=== PATIENT | male | born 1945 | race Caucasian/White ===

== ENCOUNTER 2017-11-14 15:46 | Emergency (ER) | payer MEDICARE ==
[~2017-11-14] VITALS: Ht 172.7 cm; Wt 115.0 kg
[~2017-11-14 15:46] MED LIST: ALBU2.5V NPPB; ALLO300T PO; AMLO5TAB2 PO; AMOX1TAB64 PO; ASPI-496 PO; ASPI-650 PO; CETI10CA PO; CLIN150C14 PO; FAMO20TA7 PO; FLUT9.9S NAS; FURO-92 PO; FURO-93 PO; FURO80TA3 PO; INSU100I18 SQ-INSULIN; LEVO88TA4 PO; LISI-170 PO; LISINOPRIL; MAGN1POW15 PO; METF500T4 PO; METF750T2 PO; METO50TA82 PO; METOPROLOL; POTA10TA6 PO; PRED50TA PO; PRED5TAB PO; SYNTHROID; [UNRECOGNIZED DRUG - OTHER]
[2017-11-14] MEDS ORDERED: DILT60CA PO (16:26)
[2017-11-14] MEDS ORDERED: PRED5TAB25 PO (16:26)
[2017-11-14] MEDS ORDERED: LIDOCAINE-MPF 1%, 5ML ONE (16:28)
[2017-11-14] MEDS ORDERED: LIDOCAINE-MPF 1%, 5ML INFIL ONE (16:30)
[2017-11-14 16:52] LABS: BASOPHILS # (AUTO) 0.03 x10^3/uL (0-0.1); BASOPHILS % (AUTO) 0 % (0-1); EOSINOPHILS # (AUTO) 0.07 x10^3/uL (0-0.4); EOSINOPHILS % (AUTO) 1 % (1-7); LYMPHOCYTES # (AUTO) 0.69 x10^3/uL (1-3.4); LYMPHOCYTES % (AUTO) 6 % (22-44); MD NO; MEAN CORPUSCULAR HEMOGLOBIN 26.9 pg (27.5-34.5); MEAN CORPUSCULAR HGB CONC 32.1 g/dL (33.2-36.2); MEAN CORPUSCULAR VOLUME 83.9 fL (81-97); MEAN PLATELET VOLUME 10.8 fL (7.4-10.4); MONOCYTES # (AUTO) 0.67 x10^3/uL (0.2-0.8); MONOCYTES % (AUTO) 5 % (2-9); NEUTROPHILS # (AUTO) 10.86 x10^3/uL (1.8-6.8); NEUTROPHILS % (AUTO) 88 % (42-75); PLATELET COUNT 215 x10^3/uL (130-400); RED BLOOD COUNT 4.76 x10^6/uL (4.38-5.82); RED CELL DISTRIBUTION WIDTH 15.2 % (9.4-14.8)
[2017-11-14 17:02] LABS: ALBUMIN 3.6 g/dL (3.4-5.0); ANION GAP 10 mmol/L (5-15); CHLORIDE 99 mmol/L (98-107); CREATININE 1.79 mg/dL (0.7-1.3)
[2017-11-14] MEDS ORDERED: CEFTRIAXONE 1,000 MG ONE (17:37)
[2017-11-14] MEDS ORDERED: LIDOCAINE-MPF 1%, 2ML ONE (17:37)
[2017-11-14 17:54] VITALS: BP 146/91
[2017-11-14] MEDS ORDERED: CEFTRIAXONE 1,000 MG IM ONE (18:00)
== END 2017-11-14 18:08 | disposition home or self-care (01) ==
LOC: ED 16:47
DX: L02.212 Cutaneous abscess of back [any part, except buttock and flank] (principal); E03.9 Hypothyroidism, unspecified; E11.9 Type 2 diabetes mellitus without complications; J44.9 Chronic obstructive pulmonary disease, unspecified; Z87.891 Personal history of nicotine dependence; Z98.890 Other specified postprocedural states
CPT/HCPCS: 10060; 36415; 71046; 80048; 82040; 85025; 96372; 99285; J0696

== ENCOUNTER 2017-11-20 12:46 | Emergency (ER) | payer MEDICARE ==
[~2017-11-20] VITALS: Ht 172.7 cm; Wt 115.0 kg
[~2017-11-20 12:46] MED LIST changes: +DILT60CA PO; +PRED5TAB25 PO
[2017-11-20 12:47] VITALS: BP 188/68
== END 2017-11-20 13:32 | disposition home or self-care (01) ==
LOC: ED 13:26
DX: Z48.01 Encounter for change or removal of surgical wound dressing (principal); J44.9 Chronic obstructive pulmonary disease, unspecified; I11.0 Hypertensive heart disease with heart failure; I50.9 Heart failure, unspecified; E03.9 Hypothyroidism, unspecified
CPT/HCPCS: 99282

== ENCOUNTER 2017-11-23 14:55 | Emergency (ER) | payer MEDICARE ==
[~2017-11-23] VITALS: Ht 172.7 cm; Wt 113.6 kg
[2017-11-23 14:58] VITALS: BP 187/73
== END 2017-11-23 16:27 | disposition home or self-care (01) ==
LOC: ED 16:21
DX: L02.212 Cutaneous abscess of back [any part, except buttock and flank] (principal); E03.9 Hypothyroidism, unspecified; E11.9 Type 2 diabetes mellitus without complications; J44.9 Chronic obstructive pulmonary disease, unspecified; Z87.891 Personal history of nicotine dependence
CPT/HCPCS: 99283

== ENCOUNTER 2017-11-28 14:19 | Emergency (ER) | payer MEDICARE ==
[~2017-11-28] VITALS: Ht 172.7 cm; Wt 113.6 kg
[2017-11-28 14:21] VITALS: BP 177/69
== END 2017-11-28 15:45 | disposition home or self-care (01) ==
LOC: ED 14:39
DX: L02.212 Cutaneous abscess of back [any part, except buttock and flank] (principal); E03.9 Hypothyroidism, unspecified; E11.9 Type 2 diabetes mellitus without complications; J44.9 Chronic obstructive pulmonary disease, unspecified; D64.9 Anemia, unspecified; I11.0 Hypertensive heart disease with heart failure; I50.9 Heart failure, unspecified
CPT/HCPCS: 99281

== ENCOUNTER 2018-02-17 12:10 | Inpatient (IN) | payer MEDICARE ==
[~2018-02-17] VITALS: Ht 172.7 cm; Wt 119.0 kg
[~2018-02-17 12:10] MED LIST changes: -AMLO5TAB2 PO; +AMLO5TAB7 PO; +METF500T17 PO; -METF500T4 PO
[2018-02-17] MEDS ORDERED: ASPIRIN 81 MG TABLET CHEW ONE (13:27)
[2018-02-17] MEDS ORDERED: ASPIRIN 81 MG TABLET CHEW PO ONE (13:30)
[2018-02-17 13:42] LABS: BASOPHILS # (AUTO) 0.02 x10^3/uL (0-0.1); BASOPHILS % (AUTO) 0 % (0-1); EOSINOPHILS % (AUTO) 1 % (1-7); LYMPHOCYTES # (AUTO) 0.93 x10^3/uL (1-3.4); LYMPHOCYTES % (AUTO) 10 % (22-44); MD NO; MEAN CORPUSCULAR HEMOGLOBIN 26.6 pg (27.5-34.5); MEAN CORPUSCULAR HGB CONC 32.2 g/dL (33.2-36.2); MEAN CORPUSCULAR VOLUME 82.6 fL (81-97); MEAN PLATELET VOLUME 9.9 fL (7.4-10.4); MONOCYTES # (AUTO) 0.58 x10^3/uL (0.2-0.8); MONOCYTES % (AUTO) 6 % (2-9); NEUTROPHILS # (AUTO) 8.09 x10^3/uL (1.8-6.8); NEUTROPHILS % (AUTO) 83 % (42-75); PLATELET COUNT 203 x10^3/uL (130-400); RED BLOOD COUNT 4.81 x10^6/uL (4.38-5.82); RED CELL DISTRIBUTION WIDTH 15.5 % (9.4-14.8)
[2018-02-17 13:53] LABS: ALANINE AMINOTRANSFERASE 19 U/L (12-78); ALBUMIN 3.8 g/dL (3.4-5.0); ANION GAP 8 mmol/L (5-15); CALCIUM 8.5 mg/dL (8.5-10.1); CHLORIDE 97 mmol/L (98-107); CREATININE 1.85 mg/dL (0.7-1.3)
[2018-02-17 13:57] LABS: ALKALINE PHOSPHATASE 48 U/L (45-117); BILIRUBIN,TOTAL 0.4 mg/dL (0.2-1.0); TOTAL PROTEIN 6.9 g/dL (6.4-8.2)
[2018-02-17] MEDS ORDERED: FUROSEMIDE 40 MG/4 ML IV ONE (14:00)
[2018-02-17] MEDS ORDERED: FUROSEMIDE 40 MG/4 ML ONE (14:05)
[2018-02-17] MEDS ORDERED: ACETAMINOPHEN 325 MG TABLET PO PRN (15:30)
[2018-02-17] MEDS ORDERED: POLYETHYLENE GLYCOL 17 GM PACKET PO PRN (15:30)
[2018-02-17] MEDS ORDERED: BISACODYL 10 MG SUPP PR PRN (15:30)
[2018-02-17] MEDS ORDERED: HYDROcodone/APAP 5/325 TABLET PO PRN (15:30)
[2018-02-17] MEDS ORDERED: GLUCAGON 1 MG IM PRN (15:30)
[2018-02-17] MEDS ORDERED: DOCUSATE 100 MG CAPSULE PO PRN (15:30)
[2018-02-17] MEDS ORDERED: hydrALAzine 20 MG/ML, 1ML IVPush PRN (15:30)
[2018-02-17] MEDS ORDERED: DEXTROSE 4 GM TAB.CHEW PO PRN (15:30)
[2018-02-17] MEDS ORDERED: LABETALOL 5MG/ML, 20ML IVPush PRN (15:30)
[2018-02-17] MEDS ORDERED: ONDANSETRON ODT 4 MG PO PRN (15:30)
[2018-02-17] MEDS ORDERED: DEXTROSE 50%, 50ML SYRINGE IVPush PRN (15:30)
[2018-02-17] MEDS ORDERED: LIDODERM 5% PATCH TD PRN (15:30)
[2018-02-17 17:19] LABS: HEMOGLOBIN A1C 12.5 % (4.2-6.3)
[2018-02-17] MEDS: HEPARIN 5,000 UNITS/ML, 1ML SQ SCH (17:27)
[2018-02-17] MEDS: INSULIN LISPRO 100 UNITS/ML, PEN SQ-INSULIN SCH ×2 (17:54→21:48)
[2018-02-17 19:51] VITALS: BP 153/86
[2018-02-17] MEDS: SODIUM CHLORIDE FLUSH 10ML SYR IVF SCH (21:00)
[2018-02-17] MEDS ORDERED: FUROSEMIDE 40 MG TABLET PO SCH (21:00)
[2018-02-18 00:48] VITALS: BP 163/62
[2018-02-18] MEDS: HEPARIN 5,000 UNITS/ML, 1ML SQ SCH ×4 (01:04→23:20)
[2018-02-18] MEDS: CYCLOBENZAPRINE 10 MG TABLET PO PRN ×2 (01:05→23:20)
[2018-02-18 01:35] LABS: BASOPHILS # (AUTO) 0.03 x10^3/uL (0-0.1); BASOPHILS % (AUTO) 0 % (0-1); EOSINOPHILS # (AUTO) 0.17 x10^3/uL (0-0.4); EOSINOPHILS % (AUTO) 2 % (1-7); LYMPHOCYTES # (AUTO) 1.21 x10^3/uL (1-3.4); LYMPHOCYTES % (AUTO) 14 % (22-44); MD NO; MEAN CORPUSCULAR HEMOGLOBIN 26.3 pg (27.5-34.5); MEAN CORPUSCULAR HGB CONC 32.1 g/dL (33.2-36.2); MEAN CORPUSCULAR VOLUME 81.9 fL (81-97); MEAN PLATELET VOLUME 9.6 fL (7.4-10.4); MONOCYTES # (AUTO) 0.61 x10^3/uL (0.2-0.8); MONOCYTES % (AUTO) 7 % (2-9); NEUTROPHILS # (AUTO) 6.39 x10^3/uL (1.8-6.8); NEUTROPHILS % (AUTO) 76 % (42-75); PLATELET COUNT 198 x10^3/uL (130-400); RED BLOOD COUNT 4.62 x10^6/uL (4.38-5.82); RED CELL DISTRIBUTION WIDTH 15.9 % (9.4-14.8)
[2018-02-18 01:47] LABS: ALANINE AMINOTRANSFERASE 20 U/L (12-78); ALBUMIN 3.5 g/dL (3.4-5.0); ANION GAP 3 mmol/L (5-15); CALCIUM 8.5 mg/dL (8.5-10.1); CHLORIDE 97 mmol/L (98-107); CHOLESTEROL, TOTAL 250 mg/dL (140-239); CREATININE 1.85 mg/dL (0.7-1.3)
[2018-02-18 01:52] LABS: TROPONIN I 0.063 ng/mL (0.000-0.045)
[2018-02-18 01:57] LABS: ALKALINE PHOSPHATASE 42 U/L (45-117); BILIRUBIN,TOTAL 0.4 mg/dL (0.2-1.0); CHOL/HDL RATIO 5.8; HDL CHOL % 17 % (26-37); HDL CHOLESTEROL (DIRECT) 43 mg/dL (40-60); LDL CHOLESTEROL,CALCULATED 177 mg/dL (54-169); LDL/HDL RATIO 4.1 (0.5-3.0); TOTAL PROTEIN 6.2 g/dL (6.4-8.2); TRIGLYCERIDES 148 mg/dL (50-200); VLDL CHOLESTEROL 30 mg/dL (0-25)
[2018-02-18] MEDS: INSULIN LISPRO 100 UNITS/ML, PEN SQ-INSULIN SCH ×4 (07:00→20:36)
[2018-02-18 08:42] VITALS: BP 178/71
[2018-02-18] MEDS ORDERED: REGADENOSON 0.4 MG/5 ML SYRINGE ONE (08:44)
[2018-02-18] MEDS: LEVOTHYROXINE 150 MCG TABLET PO SCH (08:56)
[2018-02-18] MEDS: ASPIRIN 325 MG TABLET EC PO SCH (08:56)
[2018-02-18] MEDS: SODIUM CHLORIDE FLUSH 10ML SYR IVF SCH ×2 (08:56→20:36)
[2018-02-18] MEDS ORDERED: FUROSEMIDE 40 MG/4 ML IV SCH (09:00)
[2018-02-18] MEDS ORDERED: FUROSEMIDE 40 MG/4 ML ONE (10:50)
[2018-02-18] MEDS: DILTIAZEM 60 MG CAP.ER.12H PO SCH (10:52)
[2018-02-18 12:36] VITALS: BP 168/75
[2018-02-18] MEDS: ALBUTEROL SULFATE 2.5 MG/3 ML NPPB PRN (14:55)
[2018-02-18] MEDS: ISOSORBIDE DINITRATE 10 MG TABLET PO SCH ×2 (15:29→20:32)
[2018-02-18] MEDS: CARVEDILOL 6.25 MG TABLET PO SCH (17:38)
[2018-02-18 19:21] VITALS: BP 147/67
[2018-02-19 01:28] VITALS: BP 118/55
[2018-02-19 05:10] LABS: ANION GAP 7 mmol/L (5-15); CALCIUM 8.9 mg/dL (8.5-10.1); CHLORIDE 98 mmol/L (98-107)
[2018-02-19] MEDS: CARVEDILOL 6.25 MG TABLET PO SCH ×2 (05:12→16:32)
[2018-02-19] MEDS: ASPIRIN 325 MG TABLET EC PO SCH (05:13)
[2018-02-19 05:14] LABS: CREATININE 1.84 mg/dL (0.7-1.3)
[2018-02-19] MEDS: INSULIN LISPRO 100 UNITS/ML, PEN SQ-INSULIN SCH ×4 (07:00→20:27)
[2018-02-19 07:53] VITALS: BP 126/70
[2018-02-19] MEDS: DILTIAZEM 60 MG CAP.ER.12H PO SCH (08:08)
[2018-02-19] MEDS: FUROSEMIDE 40 MG TABLET PO SCH (08:09)
[2018-02-19] MEDS: ISOSORBIDE DINITRATE 10 MG TABLET PO SCH ×3 (08:09→20:27)
[2018-02-19] MEDS: LEVOTHYROXINE 150 MCG TABLET PO SCH (08:09)
[2018-02-19] MEDS: SODIUM CHLORIDE FLUSH 10ML SYR IVF SCH ×2 (08:09→20:27)
[2018-02-19] MEDS: HEPARIN 5,000 UNITS/ML, 1ML SQ SCH ×3 (08:10→23:30)
[2018-02-19 13:17] VITALS: BP 129/65
[2018-02-19 18:50] VITALS: BP 134/66
[2018-02-19] MEDS: CARVEDILOL 12.5 MG TABLET PO SCH (20:27)
[2018-02-19] MEDS: CYCLOBENZAPRINE 10 MG TABLET PO PRN (23:47)
[2018-02-20 01:10] VITALS: BP 135/69
[2018-02-20] MEDS: ASPIRIN 325 MG TABLET EC PO SCH (06:12)
[2018-02-20] MEDS: CARVEDILOL 12.5 MG TABLET PO SCH ×2 (06:12→18:10)
[2018-02-20] MEDS: INSULIN LISPRO 100 UNITS/ML, PEN SQ-INSULIN SCH ×4 (07:00→21:00)
[2018-02-20 07:07] VITALS: BP 126/52
[2018-02-20] MEDS: HEPARIN 5,000 UNITS/ML, 1ML SQ SCH ×3 (07:30→23:01)
[2018-02-20] MEDS: ISOSORBIDE DINITRATE 10 MG TABLET PO SCH ×3 (07:50→20:27)
[2018-02-20] MEDS: FUROSEMIDE 40 MG TABLET PO SCH (07:50)
[2018-02-20] MEDS: LEVOTHYROXINE 150 MCG TABLET PO SCH (07:50)
[2018-02-20] MEDS: SODIUM CHLORIDE FLUSH 10ML SYR IVF SCH ×2 (07:55→20:19)
[2018-02-20] MEDS: SODIUM CHLORIDE 0.9% 1,000 ML IV SCH ×2 (08:27→20:28)
[2018-02-20 09:09] LABS: ANION GAP 5 mmol/L (5-15); CALCIUM 8.5 mg/dL (8.5-10.1); CHLORIDE 98 mmol/L (98-107); CREATININE 1.89 mg/dL (0.7-1.3)
[2018-02-20] MEDS ORDERED: methylPREDNISolone SOD SUCC 125 MG/2 ML IVPush ONE (11:30)
[2018-02-20] MEDS ORDERED: DIPHENHYDRAMINE 50 MG/ML, 1ML IVPush ONE (11:30)
[2018-02-20] MEDS ORDERED: VERAPAMIL 2.5 MG/ML, 2ML ONE (12:33)
[2018-02-20] MEDS ORDERED: FENTANYL PF 100 MCG/2ML ONE (12:33)
[2018-02-20] MEDS ORDERED: MIDAZOLAM 1 MG/ML, 5ML ONE (12:33)
[2018-02-20] MEDS ORDERED: TICAGRELOR 90 MG TABLET ONE (12:33)
[2018-02-20] MEDS ORDERED: NITROGLYCERIN 5 MG/ML, 10ML ONE (12:33)
[2018-02-20] MEDS ORDERED: HEPARIN 1,000 UNITS/ML, 10ML ONE (12:34)
[2018-02-20] MEDS ORDERED: BIVALIRUDIN 250 MG ONE (12:34)
[2018-02-20 14:30] VITALS: BP 139/69
[2018-02-20 19:33] VITALS: BP 130/66
[2018-02-20] MEDS ORDERED: INSULIN LISPRO 100 UNITS/ML, PEN SQ-INSULIN ONE (23:00)
[2018-02-21 00:44] VITALS: BP 137/71
[2018-02-21] MEDS: INSULIN GLARGINE 100 UNITS/ML, PEN SQ-INSULIN SCH ×2 (02:15→21:04)
[2018-02-21] MEDS: ASPIRIN 325 MG TABLET EC PO SCH (05:03)
[2018-02-21] MEDS: CARVEDILOL 12.5 MG TABLET PO SCH ×2 (05:03→16:51)
[2018-02-21 05:06] LABS: ALBUMIN 3.7 g/dL (3.4-5.0); ANION GAP 9 mmol/L (5-15); CALCIUM 8.4 mg/dL (8.5-10.1); CHLORIDE 96 mmol/L (98-107); CREATININE 2.39 mg/dL (0.7-1.3)
[2018-02-21] MEDS: HEPARIN 5,000 UNITS/ML, 1ML SQ SCH ×3 (07:33→23:46)
[2018-02-21] MEDS: SODIUM CHLORIDE FLUSH 10ML SYR IVF SCH ×2 (07:33→21:05)
[2018-02-21] MEDS: ISOSORBIDE DINITRATE 10 MG TABLET PO SCH ×3 (07:34→21:05)
[2018-02-21] MEDS: FUROSEMIDE 40 MG TABLET PO SCH (07:34)
[2018-02-21] MEDS: LEVOTHYROXINE 150 MCG TABLET PO SCH (07:35)
[2018-02-21] MEDS: INSULIN LISPRO 100 UNITS/ML, PEN SQ-INSULIN SCH ×4 (07:43→21:05)
[2018-02-21 07:52] VITALS: BP 127/65
[2018-02-21] MEDS: SODIUM CHLORIDE 0.9% 1,000 ML IV SCH ×2 (08:51→19:40)
[2018-02-21 14:26] VITALS: BP 128/60
[2018-02-21 19:34] VITALS: BP 128/71
[2018-02-21] MEDS: CYCLOBENZAPRINE 10 MG TABLET PO PRN (23:46)
[2018-02-22 00:50] VITALS: BP 161/75
[2018-02-22] MEDS: SODIUM CHLORIDE 0.9% 1,000 ML IV SCH ×3 (01:33→20:49)
[2018-02-22 06:11] VITALS: BP 150/77
[2018-02-22] MEDS: CARVEDILOL 12.5 MG TABLET PO SCH ×2 (06:14→16:24)
[2018-02-22] MEDS: ASPIRIN 325 MG TABLET EC PO SCH (06:14)
[2018-02-22] MEDS: ALBUTEROL SULFATE 2.5 MG/3 ML NPPB PRN (06:51)
[2018-02-22 08:07] VITALS: BP 123/76
[2018-02-22 08:12] LABS: ANION GAP 6 mmol/L (5-15); CALCIUM 8.8 mg/dL (8.5-10.1); CHLORIDE 99 mmol/L (98-107); CREATININE 2.43 mg/dL (0.7-1.3)
[2018-02-22] MEDS: INSULIN LISPRO 100 UNITS/ML, PEN SQ-INSULIN SCH ×4 (08:40→20:48)
[2018-02-22] MEDS: SODIUM CHLORIDE FLUSH 10ML SYR IVF SCH ×2 (08:41→20:49)
[2018-02-22] MEDS: HEPARIN 5,000 UNITS/ML, 1ML SQ SCH ×3 (08:41→22:58)
[2018-02-22] MEDS: FUROSEMIDE 40 MG TABLET PO SCH (08:42)
[2018-02-22] MEDS: ISOSORBIDE DINITRATE 20 MG TABLET PO SCH ×3 (08:42→20:46)
[2018-02-22] MEDS: LEVOTHYROXINE 150 MCG TABLET PO SCH (08:43)
[2018-02-22 14:24] VITALS: BP 129/74
[2018-02-22 18:40] VITALS: BP 108/50
[2018-02-22 19:06] VITALS: BP 137/70
[2018-02-22] MEDS: INSULIN GLARGINE 100 UNITS/ML, PEN SQ-INSULIN SCH (20:47)
[2018-02-22] MEDS: CYCLOBENZAPRINE 10 MG TABLET PO PRN (22:59)
[2018-02-23 00:18] VITALS: BP 158/80
[2018-02-23] MEDS: CARVEDILOL 12.5 MG TABLET PO SCH ×2 (05:25→18:15)
[2018-02-23] MEDS: ASPIRIN 325 MG TABLET EC PO SCH (05:26)
[2018-02-23 06:09] LABS: ANION GAP 7 mmol/L (5-15); CALCIUM 8.5 mg/dL (8.5-10.1); CHLORIDE 103 mmol/L (98-107); CREATININE 2.08 mg/dL (0.7-1.3)
[2018-02-23] MEDS: SODIUM CHLORIDE FLUSH 10ML SYR IVF SCH ×2 (07:34→21:27)
[2018-02-23] MEDS: INSULIN LISPRO 100 UNITS/ML, PEN SQ-INSULIN SCH ×4 (08:01→21:44)
[2018-02-23] MEDS: LEVOTHYROXINE 150 MCG TABLET PO SCH (08:02)
[2018-02-23] MEDS: FUROSEMIDE 40 MG TABLET PO SCH (08:02)
[2018-02-23] MEDS: HEPARIN 5,000 UNITS/ML, 1ML SQ SCH ×3 (08:02→23:37)
[2018-02-23] MEDS: ISOSORBIDE DINITRATE 20 MG TABLET PO SCH ×3 (08:03→21:26)
[2018-02-23] MEDS: SODIUM CHLORIDE 0.9% 1,000 ML IV SCH (08:03)
[2018-02-23 08:07] VITALS: BP 129/56
[2018-02-23] MEDS ORDERED: CLOPIDOGREL 75 MG TABLET ONE (11:15)
[2018-02-23] MEDS: CLOPIDOGREL 75 MG TABLET PO SCH (11:16)
[2018-02-23 14:06] VITALS: BP 111/45
[2018-02-23 19:55] VITALS: BP 134/61
[2018-02-23] MEDS: INSULIN GLARGINE 100 UNITS/ML, PEN SQ-INSULIN SCH (21:45)
[2018-02-23] MEDS: CYCLOBENZAPRINE 10 MG TABLET PO PRN (23:37)
[2018-02-24 01:42] VITALS: BP 124/70
[2018-02-24] MEDS: ASPIRIN 81 MG TABLET CHEW PO SCH (05:11)
[2018-02-24] MEDS: CARVEDILOL 12.5 MG TABLET PO SCH ×2 (05:11→18:14)
[2018-02-24 05:21] LABS: BASOPHILS # (AUTO) 0.05 x10^3/uL (0-0.1); BASOPHILS % (AUTO) 1 % (0-1); EOSINOPHILS # (AUTO) 0.13 x10^3/uL (0-0.4); EOSINOPHILS % (AUTO) 2 % (1-7); LYMPHOCYTES % (AUTO) 16 % (22-44); MD NO; MEAN CORPUSCULAR HEMOGLOBIN 27.1 pg (27.5-34.5); MEAN CORPUSCULAR HGB CONC 32.4 g/dL (33.2-36.2); MEAN CORPUSCULAR VOLUME 83.5 fL (81-97); MEAN PLATELET VOLUME 10.6 fL (7.4-10.4); MONOCYTES # (AUTO) 0.61 x10^3/uL (0.2-0.8); MONOCYTES % (AUTO) 8 % (2-9); NEUTROPHILS # (AUTO) 5.48 x10^3/uL (1.8-6.8); NEUTROPHILS % (AUTO) 73 % (42-75); PLATELET COUNT 160 x10^3/uL (130-400); RED BLOOD COUNT 3.93 x10^6/uL (4.38-5.82); RED CELL DISTRIBUTION WIDTH 16.2 % (9.4-14.8)
[2018-02-24 05:23] LABS: ANION GAP 8 mmol/L (5-15); CALCIUM 8.2 mg/dL (8.5-10.1); CHLORIDE 103 mmol/L (98-107)
[2018-02-24 05:24] LABS: CREATININE 1.95 mg/dL (0.7-1.3)
[2018-02-24] MEDS: INSULIN LISPRO 100 UNITS/ML, PEN SQ-INSULIN SCH ×4 (07:00→22:04)
[2018-02-24] MEDS: SODIUM CHLORIDE FLUSH 10ML SYR IVF SCH ×2 (07:16→22:30)
[2018-02-24] MEDS: HEPARIN 5,000 UNITS/ML, 1ML SQ SCH ×3 (07:43→22:02)
[2018-02-24 07:47] VITALS: BP 142/67
[2018-02-24] MEDS: ISOSORBIDE DINITRATE 20 MG TABLET PO SCH ×3 (09:48→22:04)
[2018-02-24] MEDS: LEVOTHYROXINE 150 MCG TABLET PO SCH (09:48)
[2018-02-24] MEDS: CLOPIDOGREL 75 MG TABLET PO SCH (09:48)
[2018-02-24] MEDS: FUROSEMIDE 40 MG TABLET PO SCH (09:48)
[2018-02-24 13:22] VITALS: BP 133/57
[2018-02-24 19:17] VITALS: BP 126/67
[2018-02-24] MEDS: INSULIN GLARGINE 100 UNITS/ML, PEN SQ-INSULIN SCH (22:03)
[2018-02-25] VITALS (7 sets, daily range): BP systolic 123–138; BP diastolic 60–71
[2018-02-25] MEDS: CYCLOBENZAPRINE 10 MG TABLET PO PRN (00:05)
[2018-02-25] MEDS ORDERED: CYCL5TAB PO (00:44)
[2018-02-25] MEDS: ASPIRIN 81 MG TABLET CHEW PO SCH (05:03)
[2018-02-25] MEDS: CARVEDILOL 12.5 MG TABLET PO SCH ×2 (05:03→18:02)
[2018-02-25 05:54] LABS: BASOPHILS # (AUTO) 0.03 x10^3/uL (0-0.1); BASOPHILS % (AUTO) 1 % (0-1); EOSINOPHILS # (AUTO) 0.09 x10^3/uL (0-0.4); EOSINOPHILS % (AUTO) 1 % (1-7); LYMPHOCYTES # (AUTO) 1.16 x10^3/uL (1-3.4); LYMPHOCYTES % (AUTO) 16 % (22-44); MD NO; MEAN CORPUSCULAR HEMOGLOBIN 27.3 pg (27.5-34.5); MEAN CORPUSCULAR HGB CONC 32.7 g/dL (33.2-36.2); MEAN CORPUSCULAR VOLUME 83.3 fL (81-97); MEAN PLATELET VOLUME 10.6 fL (7.4-10.4); MONOCYTES # (AUTO) 0.55 x10^3/uL (0.2-0.8); MONOCYTES % (AUTO) 8 % (2-9); NEUTROPHILS # (AUTO) 5.48 x10^3/uL (1.8-6.8); NEUTROPHILS % (AUTO) 75 % (42-75); PLATELET COUNT 168 x10^3/uL (130-400); RED BLOOD COUNT 4.09 x10^6/uL (4.38-5.82); RED CELL DISTRIBUTION WIDTH 15.8 % (9.4-14.8)
[2018-02-25 05:55] LABS: ANION GAP 5 mmol/L (5-15); CALCIUM 8.7 mg/dL (8.5-10.1); CHLORIDE 104 mmol/L (98-107); CREATININE 1.85 mg/dL (0.7-1.3)
[2018-02-25] MEDS: SODIUM CHLORIDE FLUSH 10ML SYR IVF SCH ×2 (07:52→21:00)
[2018-02-25] MEDS: HEPARIN 5,000 UNITS/ML, 1ML SQ SCH ×2 (08:09→16:13)
[2018-02-25] MEDS: INSULIN LISPRO 100 UNITS/ML, PEN SQ-INSULIN SCH ×4 (08:12→21:35)
[2018-02-25] MEDS: ISOSORBIDE DINITRATE 20 MG TABLET PO SCH ×3 (08:13→21:37)
[2018-02-25] MEDS: CLOPIDOGREL 75 MG TABLET PO SCH (08:13)
[2018-02-25] MEDS: LEVOTHYROXINE 150 MCG TABLET PO SCH (08:14)
[2018-02-25] MEDS: FUROSEMIDE 40 MG TABLET PO SCH (08:14)
[2018-02-25] MEDS: INSULIN GLARGINE 100 UNITS/ML, PEN SQ-INSULIN SCH (21:37)
[2018-02-26 00:06] VITALS: BP 134/63
[2018-02-26] MEDS: CYCLOBENZAPRINE 10 MG TABLET PO PRN (03:10)
[2018-02-26 05:08] VITALS: BP 147/68
[2018-02-26] MEDS: ASPIRIN 81 MG TABLET CHEW PO SCH (05:08)
[2018-02-26] MEDS: CARVEDILOL 12.5 MG TABLET PO SCH ×2 (05:08→19:32)
[2018-02-26 05:26] LABS: BASOPHILS # (AUTO) 0.03 x10^3/uL (0-0.1); BASOPHILS % (AUTO) 0 % (0-1); EOSINOPHILS # (AUTO) 0.16 x10^3/uL (0-0.4); EOSINOPHILS % (AUTO) 2 % (1-7); LYMPHOCYTES # (AUTO) 1.21 x10^3/uL (1-3.4); LYMPHOCYTES % (AUTO) 16 % (22-44); MD NO; MEAN CORPUSCULAR HEMOGLOBIN 26.8 pg (27.5-34.5); MEAN CORPUSCULAR HGB CONC 32.2 g/dL (33.2-36.2); MEAN CORPUSCULAR VOLUME 83.5 fL (81-97); MEAN PLATELET VOLUME 10.7 fL (7.4-10.4); MONOCYTES # (AUTO) 0.58 x10^3/uL (0.2-0.8); MONOCYTES % (AUTO) 8 % (2-9); NEUTROPHILS # (AUTO) 5.63 x10^3/uL (1.8-6.8); NEUTROPHILS % (AUTO) 74 % (42-75); PLATELET COUNT 173 x10^3/uL (130-400); RED CELL DISTRIBUTION WIDTH 16.3 % (9.4-14.8)
[2018-02-26 05:30] LABS: ANION GAP 5 mmol/L (5-15); CALCIUM 8.8 mg/dL (8.5-10.1); CHLORIDE 103 mmol/L (98-107); CREATININE 1.82 mg/dL (0.7-1.3)
[2018-02-26 06:35] VITALS: BP 135/70
[2018-02-26] MEDS: LEVOTHYROXINE 150 MCG TABLET PO SCH (08:04)
[2018-02-26] MEDS: HEPARIN 5,000 UNITS/ML, 1ML SQ SCH ×3 (08:04→15:45)
[2018-02-26] MEDS: INSULIN LISPRO 100 UNITS/ML, PEN SQ-INSULIN SCH ×4 (08:04→21:10)
[2018-02-26] MEDS ORDERED: ISOSORBIDE DINITRATE 10 MG TABLET ONE (09:46)
[2018-02-26] MEDS: CLOPIDOGREL 75 MG TABLET PO SCH (09:49)
[2018-02-26] MEDS: ISOSORBIDE DINITRATE 20 MG TABLET PO SCH ×3 (09:49→21:11)
[2018-02-26] MEDS: FUROSEMIDE 40 MG TABLET PO SCH (09:50)
[2018-02-26] MEDS: SODIUM CHLORIDE FLUSH 10ML SYR IVF SCH ×2 (09:50→21:12)
[2018-02-26] MEDS ORDERED: NITROGLYCER PO (09:54)
[2018-02-26 13:45] VITALS: BP 135/75
[2018-02-26] MEDS ORDERED: FUROSEMIDE 40 MG/4 ML IV ONE (14:30)
[2018-02-26] MEDS ORDERED: POTASSIUM CHLORIDE 20 MEQ TAB.ER.PRT PO ONE (14:30)
[2018-02-26 15:25] LABS: ANION GAP 8 mmol/L (5-15); CALCIUM 8.8 mg/dL (8.5-10.1); CHLORIDE 101 mmol/L (98-107); CREATININE 1.86 mg/dL (0.7-1.3)
[2018-02-26 19:47] VITALS: BP 134/84
[2018-02-26] MEDS ORDERED: ISOSORBIDE DINITRATE 30 MG TABLET ONE (20:59)
[2018-02-26] MEDS: INSULIN GLARGINE 100 UNITS/ML, PEN SQ-INSULIN SCH (21:11)
[2018-02-27] MEDS: CYCLOBENZAPRINE 10 MG TABLET PO PRN ×2 (00:06→21:37)
[2018-02-27 00:07] VITALS: BP 157/72
[2018-02-27] MEDS: HEPARIN 5,000 UNITS/ML, 1ML SQ SCH ×3 (00:07→16:43)
[2018-02-27 06:08] LABS: ANION GAP 6 mmol/L (5-15); CALCIUM 8.6 mg/dL (8.5-10.1); CHLORIDE 103 mmol/L (98-107)
[2018-02-27] MEDS: LEVOTHYROXINE 150 MCG TABLET PO SCH (06:08)
[2018-02-27] MEDS: CARVEDILOL 12.5 MG TABLET PO SCH ×2 (06:08→16:45)
[2018-02-27] MEDS: ASPIRIN 81 MG TABLET CHEW PO SCH (06:08)
[2018-02-27 06:11] LABS: CREATININE 1.74 mg/dL (0.7-1.3)
[2018-02-27] MEDS: INSULIN LISPRO 100 UNITS/ML, PEN SQ-INSULIN SCH ×4 (07:00→21:58)
[2018-02-27 07:43] VITALS: BP 153/74
[2018-02-27] MEDS: ISOSORBIDE DINITRATE 20 MG TABLET PO SCH ×3 (08:17→21:37)
[2018-02-27] MEDS: CLOPIDOGREL 75 MG TABLET PO SCH (08:17)
[2018-02-27] MEDS: FUROSEMIDE 40 MG TABLET PO SCH (08:18)
[2018-02-27] MEDS: SODIUM CHLORIDE FLUSH 10ML SYR IVF SCH ×2 (08:18→21:36)
[2018-02-27] MEDS ORDERED: FUROSEMIDE 40 MG/4 ML IV ONE (10:00)
[2018-02-27 12:36] VITALS: BP 149/74
[2018-02-27 20:34] VITALS: BP 139/72
[2018-02-27 21:33] VITALS: BP 146/70
[2018-02-27] MEDS: INSULIN GLARGINE 100 UNITS/ML, PEN SQ-INSULIN SCH (21:59)
[2018-02-28 00:25] VITALS: BP 140/64
[2018-02-28] MEDS: HEPARIN 5,000 UNITS/ML, 1ML SQ SCH ×2 (01:06→08:30)
[2018-02-28 06:14] VITALS: BP 155/66
[2018-02-28] MEDS: LEVOTHYROXINE 150 MCG TABLET PO SCH (06:21)
[2018-02-28] MEDS: CARVEDILOL 12.5 MG TABLET PO SCH (06:21)
[2018-02-28] MEDS: ASPIRIN 81 MG TABLET CHEW PO SCH (06:21)
[2018-02-28 06:33] LABS: ANION GAP 8 mmol/L (5-15); CALCIUM 8.9 mg/dL (8.5-10.1); CHLORIDE 102 mmol/L (98-107); CREATININE 1.88 mg/dL (0.7-1.3)
[2018-02-28 06:53] VITALS: BP 136/70
[2018-02-28] MEDS: INSULIN LISPRO 100 UNITS/ML, PEN SQ-INSULIN SCH ×2 (07:00→12:06)
[2018-02-28] MEDS: FUROSEMIDE 40 MG TABLET PO SCH (08:29)
[2018-02-28] MEDS: ISOSORBIDE DINITRATE 20 MG TABLET PO SCH (08:29)
[2018-02-28] MEDS: CLOPIDOGREL 75 MG TABLET PO SCH (08:29)
[2018-02-28] MEDS: SODIUM CHLORIDE FLUSH 10ML SYR IVF SCH (08:29)
[2018-02-28] MEDS ORDERED: HYDR-3342 PO (10:01)
[2018-02-28] MEDS ORDERED: CARV12.543 PO (10:01)
[2018-02-28] MEDS ORDERED: INSU100I11 SQ-INSULIN (10:01)
[2018-02-28] MEDS ORDERED: CLOP75TA PO (10:01)
[2018-02-28] MEDS ORDERED: ISOS20TA58 PO (10:01)
[2018-02-28] MEDS ORDERED: ASPI-515 PO (10:01)
[2018-02-28] MEDS ORDERED: INSU100I13 SQ-INSULIN (10:01)
[2018-02-28 14:04] VITALS: BP 147/65
== END 2018-02-28 21:52 | disposition home or self-care (01) | DRG 286 ==
LOC: ED 14:17 → 5SO 14:18 → ED 14:32
PROVIDERS: ADMIT Hospitalist; ATTEND Hospitalist
PROC: 4A023N8 Measurement of Cardiac Sampling and Pressure, Bilateral, Percutaneous Approach (ICD-10-PCS; principal; 2018-02-20)
PROC: B2111ZZ Fluoroscopy of Multiple Coronary Arteries using Low Osmolar Contrast (ICD-10-PCS; 2018-02-20)
PROC: B2161ZZ Fluoroscopy of Right and Left Heart using Low Osmolar Contrast (ICD-10-PCS; 2018-02-20)
DX: I13.0 Hypertensive heart and chronic kidney disease with heart failure and stage 1 through stage 4 chronic kidney disease, or unspecified chronic kidney disease (principal); I50.33 Acute on chronic diastolic (congestive) heart failure; N17.0 Acute kidney failure with tubular necrosis; J96.10 Chronic respiratory failure, unspecified whether with hypoxia or hypercapnia; E66.01 Morbid (severe) obesity due to excess calories; E03.9 Hypothyroidism, unspecified; E11.22 Type 2 diabetes mellitus with diabetic chronic kidney disease; E11.65 Type 2 diabetes mellitus with hyperglycemia; G47.33 Obstructive sleep apnea (adult) (pediatric); G89.29 Other chronic pain; I05.0 Rheumatic mitral stenosis; I25.10 Atherosclerotic heart disease of native coronary artery without angina pectoris; I25.82 Chronic total occlusion of coronary artery; I25.2 Old myocardial infarction; I27.29 Other secondary pulmonary hypertension; I27.81 Cor pulmonale (chronic); I35.8 Other nonrheumatic aortic valve disorders; J44.9 Chronic obstructive pulmonary disease, unspecified; N18.3 Chronic kidney disease, stage 3 (moderate); Z53.20 Procedure and treatment not carried out because of patient's decision for unspecified reasons; Z79.4 Long term (current) use of insulin; Z79.82 Long term (current) use of aspirin; Z80.9 Family history of malignant neoplasm, unspecified; Z87.891 Personal history of nicotine dependence; Z91.19 Patient's noncompliance with other medical treatment and regimen; Z99.81 Dependence on supplemental oxygen; Z68.39 Body mass index [BMI] 39.0-39.9, adult; Z88.6 Allergy status to analgesic agent; Z91.013 Allergy to seafood
CPT/HCPCS: 36415; 71045; 78452; 80048; 80053; 80061; 82040; 82947; 82962; 83036; 83735; 83880; 84443; 84484; 85025; 93005; 93017; 93306; 93460; 94640; 96374; 99156; 99157; 99285; C1769; C1894; G0378; J0583; J1644; J1940; J2250; J2785; J3010; J7613; A9502; C9898; J0360; J1200; J1815; J2930; J7030; Q9967